=== PATIENT | male | born 1980 | race Caucasian/White ===

== ENCOUNTER 2023-07-04 12:01 | Outpatient (CLI) | payer OTHER ==
[2023-07-04 12:45] LABS: #Basophils 0.1 thou/uL (0.0-0.2); #Eosinphils 0.1 thou/uL (0.0-0.7); #Lymphocytes 1.7 thou/uL (1.20-3.40); #Monocytes 0.5 thou/uL (0.11-0.59); #Neutrophils 5.4 thou/uL (1.40-6.50); %Basophils 1.7 % (0.0-1.0); %Eosinophils 1.8 % (0.0-10.0); %Monocytes 6.8 % (0.0-10.0); %Neutrophils 68.6 % (42.0-75.0); Hematocrit 47.1 % (42.0-52.0); Hemoglobin 15.2 g/dL (14.0-18.0); Mean Corpuscular HGB CONC 32.3 g/dL (32.0-36.0); Mean Corpuscular Hemoglobin 31.9 pg (27.0-31.0); Mean Corpuscular Volume 98.8 fl (78.0-98.0); Mean Platelet Volume 9.7 fL (7.4-10.4); Platelet Count 226 10x3/uL (130-400); RBC Distribution Width 12.2 % (11.5-14.5); Red Blood Cell (RBC) Count 4.77 mill/uL (4.70-6.10); White Blood Cell (WBC) Count 7.8 10x3/uL (4.8-10.8)
[2023-07-04 13:37] LABS: ALT (SGPT) 64 U/L (8-55); AST (SGOT) 38 U/L (5-34); Albumin 4.2 g/dL (3.5-5.0); Alkaline Phosphatase 102 U/L (40-110); Anion Gap 15 mmol/L (10-20); BUN (Urea Nitrogen) 17 mg/dL (8.9-20.6); Bilirubin, Total 0.7 mg/dL (0.2-1.2); Calc. Creatinine Clearance 0 mL/min (70-130); Calcium 9.2 mg/dL (7.8-10.44); Carbon Dioxide 20 mmol/L (22-29); Chloride 109 mmol/L (98-107); Estimated GFR 104; Glucose 101 mg/dL (70-105); Potassium 4.4 mmol/L (3.5-5.1); Protein, Total 7.2 g/dL (6.0-8.3); Sodium 140 mmol/L (136-145)
[2023-07-04 16:19] LABS: Hemoglobin A1c 6.1 % (4.0-6.0)
[2023-07-05 14:46] LABS: Lipase 27 U/L (8-78)
[2023-07-05 23:10] LABS: Gamma GT (GGT) 49 U/L (12-64)
[2023-07-06 01:22] LABS: Amylase 69 U/L (25-125)
== END 2023-07-04 12:02 | disposition home or self-care (01) ==
LOC: MADLAB 12:01
PROVIDERS: ATTEND Pathology Anatomic Pathology & Clinical Pathology
DX: Z00.00 Encounter for general adult medical examination without abnormal findings (principal); R79.89 Other specified abnormal findings of blood chemistry
CPT/HCPCS: 36415; 80050; 82150; 82977; 83036; 83690